=== PATIENT | male | born 2000 | race Caucasian/White ===

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

== ENCOUNTER → 2021-01-23 12:48 | Outpatient (CLI) | payer OTHER, SELFPAY ==
[2021-01-23] MEDS: COVID-19 VACC #1, MRNA(MOD) 100 MCG/0.5 ML VIAL IM (13:00)
== END ==
PROVIDERS: Family Provider Pediatrics; PCP Pediatrics; Visit Provider Internal Medicine
DX: Z23 Encounter for immunization (principal)
CPT/HCPCS: 0011A; 91301

== ENCOUNTER → 2021-02-10 16:20 | Outpatient (CLI) | payer OTHER, SELFPAY ==
--- NOTE | 2021-02-10 16:22 | DI.RAD.S_ITS ---
PROCEDURE: XR LUMBAR SPINE MIN 4V INDICATIONS: Onset of severe lumbar back pain on February 08, no sciatica TECHNIQUE: 5 views of the lumbar spine were acquired, including bilateral oblique views. COMPARISON: None. FINDINGS: Bones: 5 nonrib-bearing vertebrae are present. There is normal bony alignment. No vertebral body compression fractures. No suspicious bony lesions. Soft tissues: Overlying bowel gas pattern is normal. No suspicious soft tissue calcifications. Oblique images: No pars defects. IMPRESSION: Unremarkable radiographic examination of lumbar spine. No gross pars defects. No compression fracture or spondylolisthesis. Dictated by: Victoriano Sparks M.D. on 02/10/2021 at 17:37 Approved by: Victoriano Sparks M.D. on 02/10/2021 at 17:37
== END ==
PROVIDERS: Family Provider Pediatrics; PCP Pediatrics; Referring Provider Pediatrics; Visit Provider Pediatrics
DX: M54.5 Low back pain (principal)
CPT/HCPCS: 72110

== ENCOUNTER 2021-02-21 15:11 | Emergency (ER) | payer OTHER, SELFPAY ==
[2021-02-21 15:18] VITALS: BP 129/77; PULSE 74; RESP 16; TEMP 36.7; O2SAT 98; BMI 25.8
[2021-02-21] MEDS: LIDOCAINE 1% W/EPI 1 ML SUBCUT (15:26)
--- NOTE | 2021-02-21 16:25 | ED_ITS ---
HPI - Extremity Injury (Lower) General Chief Complaint: Extremity Injury, Lower Stated Complaint: leg cut Time Seen by Provider: 02/21/21 15:17 Source: patient Mode of arrival: Ambulatory Limitations: no limitations History of Present Illness HPI Narrative: Otherwise healthy 20-year-old young man. 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 2 cm laceration, clean but deep. Minimally painful. Wound is not contaminated. Related Data Previous Rx's Medication Instructions Recorded azithromycin 500 mg tablet 1,000 mg PO DAILY #2 tab 10/30/20 Allergies Allergy/AdvReac Type Severity Reaction Status Date / Time No Known Drug Allergies Allergy Verified 02/21/21 15:18 Review of Systems Review of Systems Narrative: Pertinent positive and negative findings as per HPI Remainder of review of systems is otherwise unremarkable for Constitutional: Fevers, chills, weakness ENT: No sore throat, neck pain, ear pain CV: Chest pain, palpitations, Respiratory: Cough, wheeze, dyspnea GI: Nausea, vomiting, diarrhea, : Dysuria, hematuria, Patient History Medical History Tinnitus of both ears Torsion of appendix testis Social History Smoking Status: Never smoker Smoking Status: Never smoker alcohol intake frequency: a few times a month Substance Use Type: marijuana Exam Narrative Exam Narrative: General: Alert appropriate in no acute distress Respiratory: Able to speak in full sentences, no obvious respiratory distress Skin: No obvious rashes, warm and dry Neurologic: Grossly intact no obvious asymmetries or abnormalities Psych: appropriate insight and affect, cooperative Extremity: 2 cm simple laceration distal anterior right thigh. Bleeding is well controlled. Initial Vital Signs Initial Vital Signs: Vital Signs Temperature 98.1 F 02/21/21 15:18 Pulse Rate 74 02/21/21 15:18 Respiratory Rate 16 02/21/21 15:18 Blood Pressure 129/77 02/21/21 15:18 Pulse Oximetry 98 02/21/21 15:18 Procedures Laceration Repair Right thigh: Site: lower extremity Side (If applicable): right Size (cm): 2 Description: linear Depth: simple, single layer Local Anesthetic: lidocaine 1% and with epi Amount of anesthesia used (mL): 3 Skin layer closed with: nylon Size (cm): 3-0 Number of sutures: 2 Course Orders Ordered: Discontinued Medications Lidocaine/Epinephrine (Lidocaine 1% W/Epi) 1 ml SUBCUT NOW ONE Stop: 02/21/21 15:20 Last Admin: 02/21/21 15:26 Dose: 1 ml Documented by: JSCORDELIAFF Vital Signs Vital signs: Vital Signs - 8 hr 02/21/21 15:18 Temperature 98.1 F Pulse Rate 74 Respiratory Rate 16 Blood Pressure 129/77 Pulse Oximetry 98 MDM - Extremity Injury (Lower) MDM Narrative Medical decision making narrative: 20-year-old young man with a 2 cm laceration requiring 2 sutures, tolerated well. safe for home discharge Discharge Plan Departure Patient Disposition: Home Clinical Impression: Laceration Instructions: DI for Laceration Repair -- Simple Activity Restrictions/Additional Instructions: Thank you for coming in today you need to have the 2 stiches removed on or about 02/28 If you notice any signs of infection, please return to the ER All the same precautions for this wound as for your new tattoo. Prescriptions: No Action azithromycin 500 mg tablet 1,000 mg PO DAILY Qty: 2 RF: 0 Referrals: Antoni Anders MD [Primary Care Provider] -
[2021-02-21 16:35] VITALS: BP 118/76; PULSE 78; RESP 17; O2SAT 99
== END 2021-02-21 16:51 | disposition home or self-care (01) ==
PROVIDERS: Emergency Provider Emergency Medicine; Family Provider Pediatrics; PCP Pediatrics
DX: S71.111A Laceration without foreign body, right thigh, initial encounter (principal); W26.8XXA Contact with other sharp object(s), not elsewhere classified, initial encounter
CPT/HCPCS: 12001; 99281; 99283

== ENCOUNTER → 2021-02-28 12:00 | Outpatient (CLI) | payer OTHER, SELFPAY ==
[2021-02-28] MEDS: COVID-19 VACC #2, MRNA(MOD) 100 MCG/0.5 ML VIAL IM (12:06)
== END ==
PROVIDERS: Family Provider Pediatrics; PCP Pediatrics; Visit Provider Internal Medicine
DX: Z23 Encounter for immunization (principal)
CPT/HCPCS: 0012A; 91301

== ENCOUNTER → 2021-12-04 14:58 | Outpatient (CLI) | payer OTHER, SELFPAY ==
[2021-12-04 15:24] LABS: Add Manual Diff / Slide Review NO; Basophils Absolute Auto 0 /uL (0-100); Basophils Percent Auto 0.4 % (0-2); Eosinophils Absolute Auto 100 /uL (0-450); Eosinophils Percent Auto 0.8 % (2-4); Hematocrit 41.9 % (41-53); Hemoglobin 14.7 g/dL (13.5-17.5); Lymphocytes Absolute Auto 2200 /uL (1100-4500); Lymphocytes Percent Auto 25.9 % (25-40); Mean Corpuscular HGB Conc 35.1 % (30-36); Mean Corpuscular Hemoglobin 30.9 PG (26-34); Monocytes Absolute Auto 500 /uL (0-900); Monocytes Percent Auto 5.5 % (3-14); Neutrophils Absolute Auto 5700 /uL (1500-7000); Neutrophils Percent Auto 67.4 % (50-75); Platelet Count 296 X10^3/uL (150-400); Red Blood Cell Count 4.76 X10^6/uL (4.5-5.9); Red Cell Distribution Width 12.9 % (11.6-14.8); White Blood Cell Count 8.5 X10^3/uL (4.5-11.0)
[2021-12-04 15:40] LABS: Alanine Aminotransferase 18 IU/L (<50); Albumin Globulin Ratio 1.6 (1.0-2.8); Alkaline Phosphatase 44 U/L (38-126); Aspartate Aminotransferase 36 IU/L (17-59); BUN Creatinine Ratio 11.5 (6-22); Bilirubin Total 0.7 mg/dL (0.2-1.3); Blood Urea Nitrogen 13 mg/dL (9-20); C-Reactive Protein Quant < 0.5 mg/dL (<1.0); Calcium 9.2 mg/dL (8.4-10.2); Carbon Dioxide 29 mmol/L (22-32); Chloride 103 mmol/L (98-107); Estimated Glomerular Filt Rate > 60.0 mL/min (>60); Globulin 3.1 g/dL (1.7-4.1); Glucose 81 mg/dL (70-100); HEMOLYSIS 32 (0-50); Potassium 4.5 mmol/L (3.4-5.1); Sodium 141 mmol/L (137-145); Total Protein 8.1 g/dL (6.3-8.2)
[2021-12-04 16:40] LABS: TSH w/ Reflex to FT4 0.83 uIU/mL (0.47-4.68)
[2021-12-04 16:42] LABS: Vitamin D 25 Hydroxy (D3) 37.5 ng/mL (30.0-100.0)
== END ==
PROVIDERS: Family Provider Pediatrics; PCP Pediatrics; Referring Provider Pediatrics; Visit Provider Pediatrics
DX: R20.0 Anesthesia of skin (principal); R25.1 Tremor, unspecified
CPT/HCPCS: 36415; 80053; 82306; 84443; 85025; 86140

== ENCOUNTER → 2023-04-19 14:47 | Outpatient (CLI) | payer OTHER, SELFPAY ==
[2023-04-19 15:09] LABS: Add Manual Diff / Slide Review NO; Basophils Absolute Auto 0 /uL (0-100); Basophils Percent Auto 0.3 % (0-2); Eosinophils Absolute Auto 100 /uL (0-450); Eosinophils Percent Auto 2.1 % (2-4); Hemoglobin 13.9 g/dL (13.5-17.5); Lymphocytes Absolute Auto 2200 /uL (1100-4500); Lymphocytes Percent Auto 31.7 % (25-40); Mean Corpuscular HGB Conc 34.8 % (30-36); Mean Corpuscular Hemoglobin 30.6 PG (26-34); Monocytes Absolute Auto 500 /uL (0-900); Monocytes Percent Auto 6.7 % (3-14); Neutrophils Absolute Auto 4100 /uL (1500-7000); Neutrophils Percent Auto 59.2 % (50-75); Platelet Count 254 X10^3/uL (150-400); Red Blood Cell Count 4.54 X10^6/uL (4.5-5.9); Red Cell Distribution Width 13.1 % (11.6-14.8); White Blood Cell Count 6.9 X10^3/uL (4.5-11.0)
[2023-04-19 15:28] LABS: Alanine Aminotransferase 23 IU/L (<50); Albumin 4.7 g/dL (3.5-5.0); Albumin Globulin Ratio 1.7 (1.0-2.8); Alkaline Phosphatase 44 U/L (38-126); Aspartate Aminotransferase 33 IU/L (17-59); BUN Creatinine Ratio 13.7 (6-22); Bilirubin Total 0.9 mg/dL (0.2-1.3); Blood Urea Nitrogen 13 mg/dL (9-20); Carbon Dioxide 32 mmol/L (22-32); Chloride 101 mmol/L (98-107); Estimated Glomerular Filt Rate > 60 mL/min (>60); Globulin 2.8 g/dL (1.7-4.1); Glucose 70 mg/dL (70-100); HEMOLYSIS < 15 (0-50); Sodium 141 mmol/L (137-145); Total Protein 7.5 g/dL (6.3-8.2)
[2023-04-19 15:57] LABS: TSH w/ Reflex to FT4 0.51 uIU/mL (0.47-4.68)
== END ==
PROVIDERS: Family Provider Pediatrics; PCP Family Medicine; Referring Provider Family Medicine; Visit Provider Family Medicine
DX: F32.A Depression, unspecified (principal); F41.1 Generalized anxiety disorder; K58.9 Irritable bowel syndrome, unspecified
CPT/HCPCS: 36415; 80053; 84443; 85025

== ENCOUNTER 2023-09-10 09:33 | Day surgery (SDC) | payer OTHER, SELFPAY ==
--- NOTE | 2023-09-10 | PATH_ITS ---
[facility] Accession Number: [id number] No. of containers..01 Tissue . 01 Material submitted: . body - RANDOM MUCOSAL . 01 Diagnosis: Random Colon, Biopsies: Colonic mucosa with no diagnostic abnormality. Negative for active, chronic, and microscopic colitis. Negative for dysplasia and malignancy. . MRV 09/22/2023 1521 Local . 01 Electronically signed: . Jm Rehman MD, PhD, Pathologist NPI- [id number] . 01 Gross description: . RANDOM MUCOSAL: Received in formalin are 4 fragment(s) of villalba, soft tissue measuring 0.1 x 0.1 x 0.1 cm to 0.3 x 0.3 x 0.2 cm submitted entirely in 1 cassette(s) /DERRICK 09/16/2023 1918 Local . 01 Pathologist provided ICD-10: R10.9, R19.4 . 01 CPT . 070672 Specimen Comment: A courtesy copy of this report has been sent to [phone] Performed at: 01 [facility] [address] [place] [address], [place], [place] [id number] MD Ernie Cummings MD Phone: [phone]
[2023-09-10 10:11] VITALS: BMI 25.5
[2023-09-10 10:23] VITALS: BP 114/77; PULSE 763; RESP 20; TEMP 36.2; O2SAT 100
[2023-09-10] MEDS: LACTATED RINGERS 1,000 ML 42 ML IV (10:26)
--- NOTE | 2023-09-10 11:48 | P.HP_ITS ---
History of Present Illness History of Present Illness Date Patient Seen: 09/10/23 Time Patient Seen: 11:48 Chief complaint: Colonoscopy Narrative: History of bloody stools. FH of ulcerative colitis and colon cancer [facility] Medical History Bilateral finger numbness Visit for suture removal Acute lumbar back pain Chlamydia infection Numbness of face Dysuria Torsion of appendix testis Torsion of appendix of testis Right testicular pain Tinnitus of both ears Migraine headache Back stiffness Social History household members: family Smoking Status: Current some day smoker alcohol intake: current Meds Home Medications and Allergies Home Medications Medication Instructions Recorded Confirmed Type fluoxetine 20 mg capsule (Prozac) 20 mg PO DAILY #90 caps 07/27/23 09/10/23 Rx hydroxyzine HCl 25 mg tablet 12.5 - 25 mg (0.5 - 1 x 25 mg) PO 07/27/23 09/10/23 Rx Q6-8H PRN anxiety #180 tabs Allergies Allergy/AdvReac Type Severity Reaction Status Date / Time No Known Drug Allergies Allergy Verified 09/10/23 10:09 Review of Systems Review of Systems ROS: Yes All systems reviewed with the patient and are negative except as other dumont documented Exam Vital Signs (past 8 hours): - 09/10/23 10:23 Temperature 97.2 F L Pulse Rate 763 H Respiratory Rate 20 Blood Pressure 114/77 Pulse Oximetry 100 Oxygen Delivery Method Room Air Oxygen Delivery Method Room Air Const General: cooperative and healthy appearing [facility] Head: normocephalic and atraumatic Eyes Sclera: abnormal sclerae Neck Neck: trachea midline Resp Effort & Inspection: normal respiratory effort and able to speak in complete sentences Cardio Rate: regular rate Rhythm: regular rhythm GI Palpation: soft and No tender Skin General: elasticity normal and turgor normal Neuro General: patient alert, patient awake and patient oriented x3 Cognition: normal cognition Psych Appearance: grossly normal Mental Status: mental status grossly normal Affect: normal affect Judgment: judgment good Assessment & Plan Assessment & Plan narrative: History of bloody stools FH of ulcerative colitis Plan: Colonoscopy with anesthesia Time Spent With Patient Time with patient: less than 30 minutes
--- NOTE | 2023-09-10 12:14 | PM.OP.COLON ---
Operative Date/Time/Diagnoses Date of procedure: 09/10/23 Time of procedure: 12:15 Pre-op diagnosis: Bloody stools, family history of ulcerative colitis Post-op diagnosis: same Procedure & Clinicians Study performed: Colonoscopy with random mucosal biopsies using cold forceps Same procedure as scheduled: Yes Indications: Bloody stools Surgeon: Laurence Morgan Procedure Notes Procedure in detail: Preop diagnosis: Bloody stools Postop diagnosis: Same Operative procedure: Colonoscopy with cold forceps mucosal biopsies Surgeon: Ciera Morgan MD Anesthetic: Propofol Findings: No significant mucosal abnormalities, no polyps, no masses. He does have enhanced hemorrhoidal tissue stage II Procedure: Patient placed in a lateral position. Rectal exam performed showing normal tone no masses. Colonoscope inserted into the rectum and advanced to ileocecal valve with minimal difficulty. Insufflation extraction of the scope and the above findings. Retroflex was included in the rectum. Impression: There is no gross abnormalities of the colon, no polyps or masses. No inflammatory changes. Grade 2 hemorrhoids Plan: Repeat colonoscopy 10 years due to his family history of ulcerative colitis and colon cancer in his grandfather. May require colonoscopy sooner if clinical conditions persist Findings: internal hemorrhoids Specimen(s): other (Random mucosal biopsies of the colon) Complications: none Post-procedure Recommendations: Colonoscopy in 10 years Follow up: as needed Disposition: PACU
[2023-09-10 12:22] VITALS: BP 92/55; PULSE 68; RESP 16; TEMP 36.8; O2SAT 98
[2023-09-10 12:27] VITALS: BP 95/41; PULSE 66; RESP 16; O2SAT 98
[2023-09-10 12:32] VITALS: BP 95/42; PULSE 66; RESP 16; O2SAT 98
[2023-09-10 12:36] VITALS: BP 95/42; PULSE 75; RESP 16; O2SAT 98
[2023-09-10 12:40] VITALS: BP 95/66; PULSE 68; RESP 16; TEMP 36.2; O2SAT 98
== END 2023-09-10 12:55 | disposition home or self-care (01) ==
PROVIDERS: Family Provider Pediatrics; PCP Family Medicine; Referring Provider Surgery; Visit Provider Surgery
PROC: 0DJD8ZZ Inspection of Lower Intestinal Tract, Via Natural or Artificial Opening Endoscopic (ICD-10-PCS; CPT 45378; principal; 2023-09-10 10:30)
DX: K92.1 Melena (principal); K64.1 Second degree hemorrhoids
CPT/HCPCS: 45380; J0171